=== PATIENT | female | born 1955 | race Caucasian/White ===

== ENCOUNTER → 2017-04-04 | Outpatient (CLI) | payer OTHER | LOC: BMCIMAGING 08:52 | PROVIDERS: ATTEND Internal Medicine | DX: Z12.31 Encounter for screening mammogram for malignant neoplasm of breast (principal) | CPT/HCPCS: G0202 ==

== ENCOUNTER → 2017-04-21 | Outpatient (CLI) | payer OTHER | LOC: BMCIMAGING 08:28 | PROVIDERS: ATTEND Internal Medicine | DX: R09.02 Hypoxemia (principal); I51.7 Cardiomegaly ==

== ENCOUNTER → 2017-05-26 | Outpatient (CLI) | payer OTHER | LOC: BHFA 08:30 | PROVIDERS: ATTEND Internal Medicine Interventional Cardiology | DX: I25.10 Atherosclerotic heart disease of native coronary artery without angina pectoris (principal) ==

== ENCOUNTER → 2017-06-01 | Outpatient (CLI) | payer OTHER ==
--- NOTE | 2017-06-01 15:36 | CPEEG ---
[f rep st] ELECTROENCEPHALOGRAM FOUR-HOUR VIDEO ELECTROENCEPHALOGRAM. DATE OF STUDY: INTERPRETATION: This 4-hour video EEG recording is normal. There were no potentially epileptogenic abnormalities present during the awake or sleep recordings. During the video EEG monitoring session, the patient denied having any clinical events. REPORT: This 4-hour video EEG contains 10 Hz alpha activity to the posterior head regions. There wa s prominent beta frequency activity present in the background. There was no abnormal activation at r est, during photic stimulation or hyperventilation. The patient became drowsy and fell asleep during the study. During drowsiness, there were occasional bitemporal theta transients, maximal left. Thi s is a normal drowsy pattern. There was no abnormal activation during drowsiness, sleep, or during t imes of arousal. During the video EEG monitoring session, the patient did not have any clinical even ts. /[id number]/MODL
== END ==
LOC: FCPNEURO 08:48
PROVIDERS: ATTEND Psychiatry & Neurology Neurology
DX: R51 Headache (principal); R94.01 Abnormal electroencephalogram [EEG]